=== PATIENT | male | born 1940 | race Caucasian/White ===

== ENCOUNTER 2020-11-03 09:58 | Inpatient (IN) ==
[2020-11-03 11:06] LABS: Basophils # 0.1 10*3/uL (0.0-0.2); Basophils % 1.1 % (0.0-0.8); Eosinophils # 0.2 10*3/uL (0.0-0.87); Eosinophils % 2.6 % (0.00-10.9); Hematocrit 43.8 VOL% (42.0-52.0); Immature Granulocytes % 0.4 %; Immature Granulocytes Absolute 0.03 #; Lymphocytes # 1.9 10*3/uL (1.4-4.0); Lymphocytes % 25.4 % (21.2-54.2); Mean Corpuscular Volume 84.6 FL (87-102); Mean Platelet Volume 10.3 FL (9.6-12.0); Monocytes % 14.3 % (1.7-12.7); Neutrophils % 56.2 % (38.7-73.9); Platelet Count 169 T/CUMM (130-400); Red Blood Count 5.18 MC/CUMM (3.8-5.5); Red Cell Distribution Width 14.1 % (9.3-17.3); White Blood Count 7.3 T/CUMM (4-12)
[2020-11-03 12:14] LABS: Albumin 3.5 G/DL (3.4-5.0); Bilirubin,Total 0.4 MG/DL (0.2-1.0); Osmolality,Calculated 285.3 MOS/KG (273-304); Potassium 4.3 MMOL/L (3.5-5.1); Total Protein 6.8 G/DL (6.4-8.2)
[2020-11-03] MEDS ORDERED: lisinopriL 10 MG TABLET PO STA (13:49)
[2020-11-03] MEDS: SODIUM CHLORIDE 0.9% 1,000 ML IV SCH (14:45)
[2020-11-03] MEDS: PANTOPRAZOLE 40 MG TABLET PO SCH (14:45)
[2020-11-04 00:46] LABS: Risk Ratio 3.37; VLDL CHOLESTEROL 19.8 MG/DL
[2020-11-04 00:49] LABS: Basophils # 0.1 10*3/uL (0.0-0.2); Basophils % 0.8 % (0.0-0.8); Calcium 8.3 MG/DL (8.5-10.1); Eosinophils # 0.2 10*3/uL (0.0-0.87); Eosinophils % 2.7 % (0.00-10.9); Hematocrit 42.5 VOL% (42.0-52.0); Hemoglobin 13.7 GM/DL (14.0-18.0); Immature Granulocytes % 0.4 %; Immature Granulocytes Absolute 0.03 #; Lymphocytes % 26.5 % (21.2-54.2); Mean Corpuscular HGB Conc 32.2 GM/DL (32-36); Mean Platelet Volume 10.3 FL (9.6-12.0); Monocytes % 13.5 % (1.7-12.7); Neutrophils % 56.1 % (38.7-73.9); Osmolality,Calculated 280.4 MOS/KG (273-304); Platelet Count 158 T/CUMM (130-400); Potassium 4.2 MMOL/L (3.5-5.1); Red Blood Count 5.12 MC/CUMM (3.8-5.5); Red Cell Distribution Width 14.1 % (9.3-17.3); White Blood Count 7.5 T/CUMM (4-12)
[2020-11-04] MEDS: SODIUM CHLORIDE 0.9% 1,000 ML IV SCH ×2 (02:23→08:38)
[2020-11-04] MEDS ORDERED: propofoL 200 MG/20 ML VIAL IV ONE (09:13)
[2020-11-04] MEDS ORDERED: LIDOCAINE 2% 5 ML VIAL ONE (09:13)
[2020-11-04] MEDS: PANTOPRAZOLE 40 MG TABLET PO SCH (10:51)
[2020-11-05 05:36] LABS: Basophils # 0.1 10*3/uL (0.0-0.2); Basophils % 0.7 % (0.0-0.8); Eosinophils # 0.2 10*3/uL (0.0-0.87); Eosinophils % 2.2 % (0.00-10.9); Hemoglobin 12.9 GM/DL (14.0-18.0); Immature Granulocytes % 0.3 %; Immature Granulocytes Absolute 0.02 #; Lymphocytes # 2.1 10*3/uL (1.4-4.0); Lymphocytes % 29.4 % (21.2-54.2); Mean Corpuscular HGB Conc 32.3 GM/DL (32-36); Mean Corpuscular Volume 84.6 FL (87-102); Mean Platelet Volume 10.8 FL (9.6-12.0); Monocytes % 14.1 % (1.7-12.7); Neutrophils % 53.3 % (38.7-73.9); Platelet Count 164 T/CUMM (130-400); Red Blood Count 4.73 MC/CUMM (3.8-5.5); Red Cell Distribution Width 14.2 % (9.3-17.3); White Blood Count 7.2 T/CUMM (4-12)
[2020-11-05 06:00] LABS: Calcium 8.4 MG/DL (8.5-10.1); Osmolality,Calculated 284.1 MOS/KG (273-304); Potassium 3.9 MMOL/L (3.5-5.1)
[2020-11-05 08:46] VITALS: BP 127/81
[2020-11-05] MEDS: PANTOPRAZOLE 40 MG TABLET PO SCH (09:07)
== END 2020-11-05 12:26 | disposition home or self-care (01) | DRG 312 ==
LOC: N.ED 09:58 → N.EDINP 13:21 → N.TELEN 14:41
PROVIDERS: ADMIT Internal Medicine; ATTEND Internal Medicine